=== PATIENT | male | born 1990 | race African-American/Black ===

== ENCOUNTER 2016-06-10 08:52 | Emergency (ER) | payer BC ==
[2016-06-10 08:59] VITALS: BP 125/73
[2016-06-10] MEDS ORDERED: BUPIVACAINE HCL 0.5 % INJ/PF 30 ML SDV INJ ONE (09:11)
--- NOTE | 2016-06-10 09:12 | ER Document Report ---
ED Oral Problem - General Chief Complaint: Toothache Stated Complaint: TOOTH PAIN Notes: The patient is a 26-year-old male who presents with 2 days of a left lower molar toothache and mild swelling around this. The pain is worse with cold foods. To help. He denies difficult to swallowing, tongue elevation, fevers, redness or stridor. TRAVEL OUTSIDE OF THE [place] IN LAST 30 DAYS: No - Related Data Allergies/Adverse Reactions: No Known Allergies Allergy (Verified 06/10/16 08:57) Past Medical History - General Information source: Patient - Social History Smoking Status: Current Every Day Smoker Chew tobacco use (# tins/day): No Frequency of alcohol use: None Drug Abuse: None Family History: None, Reviewed & Not Pertinent Patient has suicidal ideation: No Patient has homicidal ideation: No Past Surgical History: Reports: Hx Orthopedic Surgery - back - Immunizations Hx Diphtheria, Pertussis, Tetanus Vaccination: Yes Review of Systems - Review of Systems Notes: REVIEW OF SYSTEMS: CONSTITUTIONAL: -fevers, -chills EENT: +toothache Denies eye, ear or throat pain or symptoms. Denies nasal or sinus congestion. CARDIOVASCULAR: Denies chest pain, syncope. RESPIRATORY: Denies cough, cold, or chest congestion. Denies shortness of breath, difficulty breathing, or wheezing. GASTROINTESTINAL: Denies abdominal pain. Denies nausea, vomiting, or diarrhea. Denies constipation. GENITOURINARY: Denies difficulty urinating, painful urination, burning, frequency, or blood in urine. MUSCULOSKELETAL: Denies neck or back pain or joint pain or swelling. SKIN: Denies rash or skin lesions. HEMATOLOGIC: Denies easy bruising or bleeding. LYMPHATIC: Denies swollen, enlarged glands. NEUROLOGICAL: Denies altered mental status or loss of consciousness. Denies headache. Denies weakness or paralysis or loss of use of either side. Denies problems with gait or speech. Denies sensory or motor loss. PSYCHIATRIC: Denies anxiety or stress or depression. ALL OTHER SYSTEMS REVIEWED AND NEGATIVE. Physical Exam - Vital signs Vitals: Temp Pulse Resp BP Pulse Ox 98.1 F 68 13 125/73 97 06/10/16 08:57 06/10/16 08:57 06/10/16 08:57 06/10/16 08:57 06/10/16 08:57 - Notes Notes: PHYSICAL EXAMINATION: GENERAL: Well-appearing, well-nourished and in no acute distress. HEAD: Atraumatic, normocephalic. EYES: Pupils equal round and reactive to light, extraocular movements intact, sclera anicteric, conjunctiva are normal. ENT: Left lower molar with dora, mild ginigival swelling, no facial swelling, nares patent, oropharynx clear without exudates. Moist mucous membranes. NECK: Normal range of motion, supple without lymphadenopathy LUNGS: Breath sounds clear to auscultation bilaterally and equal. No wheezes rales or rhonchi. HEART: Regular rate and rhythm without murmurs ABDOMEN: Soft, nontender, normoactive bowel sounds. No guarding, no rebound. No masses appreciated. EXTREMITIES: Normal range of motion, no pitting or edema. No cyanosis. NEUROLOGICAL: Cranial nerves grossly intact. Normal speech, normal gait. Normal sensory, motor, and reflex exams. PSYCH: Normal mood, normal affect. SKIN: Warm, Dry, normal turgor, no rashes or lesions noted. Course - Re-evaluation Re-evalutation: No evidence of ANUG, Carson angina or facial cellulitis. Will treat with dental block, penicillin and a short course of [place] with follow-up at dentist. - Vital Signs Vital signs: Temp Pulse Resp BP Pulse Ox 98.1 F 68 13 125/73 97 06/10/16 08:57 06/10/16 08:57 06/10/16 08:57 06/10/16 08:57 06/10/16 08:57 Procedures - Additional Procedures Dental Block Time performed: 09:17 - 3 mL 0.5% bupivacaine injected into left inferior alveolar nerve. She tolerated procedure well. Discharge - Discharge Clinical Impression: Pain, dental Condition: Good Disposition: HOME, SELF-CARE Additional Instructions: TOOTHACHE: Your pain is due to dental decay. The tooth must be repaired in order for you to feel better. You will, therefore, be referred to a dentist. We do not have dentists on the staff at [facility]. Severe swelling or drainage around a tooth usually means a dental abscess. This also requires evaluation and treatment by the dentist, but antibiotics may be prescribed while awaiting dental treatment. You should be rechecked immediately if you develop major swelling of the face, increasing pain, a lump in the jaw or gums, headache, difficulty swallowing, or fever. ORAL NARCOTIC MEDICATION: You have been given a prescription for pain control. This medication is a narcotic. It's best taken with food, as nausea can result if taken on an empty stomach. Don't operate machinery or drive within six hours of taking this medication. Do not combine this medicine with alcohol, or with any medication which can cause sedation (such as cold tablets or sleeping pills) unless you get permission from the physician. Narcotics tend to cause constipation. If possible, drink plenty of fluids and eat a diet high in fiber and fruits. Please be aware that prescription narcotics also have the potential for abuse. People become addicted to these medications because of the general sense of wellbeing that they induce. This feeling along with a significant reduction in tension, anxiety, and aggression provides a stimulating seductive quality to these drugs. Once your pain is under control, we encourage you to discard your unused narcotics. PENICILLIN V K: You have been given a prescription for Penicillin VK. Your physician has determined that this is the best antibiotic for your condition. Pen VK can be taken with meals, however more of the antibiotic gets into the bloodstream if it's taken on an empty stomach. Penicillin usually has no side effects. However, allergy to penicillins is common. If you have had an allergic reaction to any drug of the penicillin family, you should never take any other penicillin. Notify your doctor at once if you develop hives, itching, swelling, faintness, or shortness of breath. FOLLOW-UP CARE: You have been referred for follow-up care to the dentists listed below. Call the dentists office for an appointment as you were instructed or within the next two days. If you experience worsening or a significant change in your symptoms, notify the physician immediately or return to the Emergency Department at any time for re-evaluation. [facility] [address] [place], [place] mornings, by appointment [facility] [address] [place] [address] [facility] [address] [facility] [address] [facility] [address] [email or web address] [facility] [address] [place] [address] Sunday- 8:00am to 5:00 pm Will see patients from other [facility]. Charges based on income and family size and accepts Medicare, Medicaid, and Insurances Will pull molars [facility] [address] Hours of Operation 8:00 am - 4:30 pm weekdays The following dental offices accept Medicaid: [facility] Dr. Gomez Dr. Jensen Dr. Mckee Dr. Andrews Usman Quinn Lutsavage, and Ja oral surgery Dr. Lomeli ([place]) Dr. Inman ([place]) [facility] Drs. Aaron ([place]) Dr. Serrano ([place]) [facility] Dr. Le ([place]) Drs. Townsend and ([place]) Medicaid Care Line Prescriptions: Hydrocodone/Acetaminophen [[place] 5-325 mg Tablet] 1 tab PO Q6H PRN #8 tablet PRN Reason: Penicillin V Potassium [Penicillin Vk 500 mg Tablet] 500 mg PO TID #21 tablet
== END 2016-06-10 09:35 | disposition home or self-care (01) ==
LOC: ER 08:52
PROC: 3E0T3BZ Introduction of Anesthetic Agent into Peripheral Nerves and Plexi, Percutaneous Approach (ICD-10-PCS; principal; 2016-06-10)
DX: K08.89 Other specified disorders of teeth and supporting structures (principal); R22.0 Localized swelling, mass and lump, head; F17.210 Nicotine dependence, cigarettes, uncomplicated
CPT/HCPCS: 99282

== ENCOUNTER 2016-10-21 21:25 | Emergency (ER) | payer BC ==
[2016-10-21 21:38] VITALS: BP 136/82
[2016-10-21] MEDS ORDERED: LIDOCAINE 1% INJ-PF (10 MG/ML) 30 ML SDV INJ ONE (22:11)
[2016-10-21] MEDS ORDERED: BUPIVACAINE HCL 0.5 % INJ/PF 30 ML SDV INJ ONE (22:12)
--- NOTE | 2016-10-21 22:13 | ER Document Report ---
ED Extremity Problem, Lower - General Chief Complaint: Ankle Injury Stated Complaint: RIGHT ANKLE INJURY Time Seen by Provider: 10/21/16 22:05 Notes: Patient is a 26-year-old male who comes emergency department for chief complaint of injury to his right foot and ankle, he states he tripped on a skateboard at the top of a steroid, he states he landed awkwardly twisting and inverting his right ankle and foot, he states he also jammed his great toe and broke the very tip, he states he has an ingrown toenail in there which has worsened with swelling. Patient denies any other injuries from the fall, denies head or neck injury. TRAVEL OUTSIDE OF THE [place] IN LAST 30 DAYS: No - Related Data Allergies/Adverse Reactions: No Known Allergies Allergy (Verified 06/10/16 08:57) Past Medical History - General Information source: Patient - Social History Smoking Status: Never Smoker Drug Abuse: None Lives with: Family Family History: None, Reviewed & Not Pertinent Patient has suicidal ideation: No Patient has homicidal ideation: No - Medical History Medical History: Negative Renal/ Medical History: Denies: Hx Peritoneal Dialysis Past Surgical History: Reports: Hx Orthopedic Surgery - back - Immunizations Hx Diphtheria, Pertussis, Tetanus Vaccination: Yes Review of Systems - Review of Systems Constitutional: No symptoms reported EENT: No symptoms reported Cardiovascular: No symptoms reported Respiratory: No symptoms reported Gastrointestinal: No symptoms reported Genitourinary: No symptoms reported Male Genitourinary: No symptoms reported Musculoskeletal: See HPI Skin: See HPI Hematologic/Lymphatic: No symptoms reported Neurological/Psychological: No symptoms reported Physical Exam - Vital signs Vitals: Temp Pulse Resp BP Pulse Ox 98 F 74 18 136/82 H 98 10/21/16 21:34 10/21/16 21:34 10/21/16 21:34 10/21/16 21:34 10/21/16 21:34 Interpretation: Normal - General General appearance: Appears well, Alert In distress: None - HEENT Head: Normocephalic, Atraumatic Eyes: Normal Pupils: PERRL - Respiratory Respiratory status: No respiratory distress Chest status: Nontender Breath sounds: Normal Chest palpation: Normal - Cardiovascular Rhythm: Regular Heart sounds: Normal auscultation Murmur: No - Abdominal Inspection: Normal Distension: No distension Bowel sounds: Normal Tenderness: Nontender Organomegaly: No organomegaly - Back Back: Normal, Nontender - Extremities General upper extremity: Normal inspection, Nontender, Normal color, Normal ROM , Normal temperature General lower extremity: Other - Right great ingrown toenail noted with mild soft tissue swelling, no bleeding, no purulent drainage. Tenderness over the dorsal aspect of the right foot over the proximal lateral aspect, no swelling, normal distal neurovascular exam, normal lower extremity exam otherwise. - Neurological Neuro grossly intact: Yes Cognition: Normal Orientation: AAOx4 [place] Coma Scale Eye Opening: Spontaneous Beto Coma Scale Verbal: Oriented Beto Coma Scale Motor: Obeys Commands Beto Coma Scale Total: 15 Speech: Normal Motor strength normal: LUE, RUE, LLE, RLE Sensory: Normal - Psychological Associated symptoms: Normal affect, Normal mood - Skin Skin Temperature: Warm Skin Moisture: Dry Skin Color: Normal Course - Re-evaluation Re-evalutation: Tender ingrown toenail removed, dressed, discussed care of the area, discussed follow-up with podiatry, discussed return precautions. Patient also placed in Valente immobilizer and given instructions for treatment of suspected ankle sprain. X-rays reviewed, no fracture or other abnormality noted. - Vital Signs Vital signs: Temp Pulse Resp BP Pulse Ox 98 F 74 18 136/82 H 98 10/21/16 21:34 10/21/16 21:34 10/21/16 21:34 10/21/16 21:34 10/21/16 21:34 Procedures - Incision and Drainage Right ingrown toenail Type: Single Anesthetic type: Other - 0.5% bupivacaine and 1% lidocaine digital block performed with excellent anesthesia mL's of anesthetic: 6 I&D procedure: Other - Surgical cleanser applied, sterile dressing applied Incision Method: Incision made with needle - Dissected skin back away from the right great toe ingrown nail with needle and with pickups. Needle spotter driver used to clamp the ingrown portion, scissor used to cut the nail free, ingrown nail pulled out using the needle spotter driver. Notes: After ingrown nail dissected and cut out, used silver nitrate stick to nail root at the ingrown area, cleaned again, dressed - Immobilization Right ankle Pre-Proc Neuro Vasc Exam: Normal Immobilizer type: Valente wrap Performed by: PCT Post-Proc Neuro Vasc Exam: Normal Alignment checked and good: Yes Discharge - Discharge Clinical Impression: Ingrown right big toenail Right ankle injury Qualifiers: Encounter type: initial encounter Qualified Code(s): S99.911A - Unspecified injury of right ankle, initial encounter Condition: Stable Disposition: HOME, SELF-CARE Additional Instructions: The ingrown toenail has been cut out, keeping the area clean, follow additional instructions below. If this returns please follow-up with podiatry referral. The x-rays of your foot and ankle do not show any fractures or dislocation, elevate your foot, ice 3-4 times a day for 10-15 minutes, take the naproxen as directed, use the crutches for the first 2-3 days. After pain and swelling resolve resume normal activity. Return to the emergency department for any concerning symptoms. Ingrown Nail You have an ingrown nail. An ingrown nail develops when the tissues near the nail are pushed up over the nail. Irritation develops and infection follows. An ingrown nail can result from poorly fitting shoes, improper cutting of the nail, or minor injuries. Once the tissues at the edge of the nail swell, the problem can become chronic. Emergency treatment is usually removal of the portion of the nail that has become ingrown. This is followed by hot soaks three to four times a day. Antibiotics may be necessary if infection is present. After the toe heals, make certain there is no pressure on the area, either from shoes or another toe. Trim the toenails straight across, not curved back into the corners. If ingrown nails recur, an operation to remove excess tissue near the nail, or narrowing of the nail, may be necessary. Call the doctor or return if swelling increases, or red streaks, swelling, or swollen glands are found. Prescriptions: Naproxen 500 mg PO BID #20 tablet Forms: Return to Work, Elevated Blood Pressure Referrals: DA CARDENAS FNP-C [Primary Care Provider] - Follow up as needed WALLACE OLVERA DPM [ACTIVE STAFF] - Follow up as needed
== END 2016-10-22 02:06 | disposition home or self-care (01) ==
LOC: ER 21:25
PROC: 0HBRXZZ Excision of Toe Nail, External Approach (ICD-10-PCS; principal; 2016-10-21)
DX: S99.919A Unspecified injury of unspecified ankle, initial encounter (principal); W01.0XXA Fall on same level from slipping, tripping and stumbling without subsequent striking against object, initial encounter; L60.0 Ingrowing nail
CPT/HCPCS: 99283

== ENCOUNTER 2017-03-31 01:46 | Emergency (ER) | payer SELFPAY ==
[2017-03-31 02:29] LABS: ABSOLUTE EOSINOPHILS # (AUTO) 0.2 10^3/uL (0.0-0.6); ABSOLUTE LYMPHOCYTES (AUTO) 1.3 10^3/uL (0.5-4.7); ABSOLUTE MONOCYTES (AUTO) 0.7 10^3/uL (0.1-1.4); ABSOLUTE NEUT (AUTO) 4.9 10^3/uL (1.7-8.2); BASOPHILS % (AUTO) 0.5 % (0-2); EOSINOPHILS % (AUTO) 2.4 % (0-6); HEMATOCRIT 39.4 % (37.9-51.0); HEMOGLOBIN 13.5 g/dL (13.5-17.0); HGB HCT DIFFERENCE 1.1; LYMPHOCYTES % (AUTO) 18.7 % (13-45); MEAN CORPUSCULAR HEMOGLOBIN 29.8 pg (27.0-33.4); MEAN CORPUSCULAR HGB CONC 34.2 g/dL (32.0-36.0); MEAN CORPUSCULAR VOLUME 87 fl (80-97); RED BLOOD COUNT 4.53 10^6/uL (4.35-5.55); RED CELL DISTRIBUTION WIDTH 12.8 % (11.5-14.0); SEGMENTED NEUTROPHILS % (AUTO) 68.4 % (42-78); WHITE BLOOD COUNT 7.1 10^3/uL (4.0-10.5)
[2017-03-31 02:32] LABS: APPEARANCE,URINE CLEAR; BILIRUBIN,URINE SMALL (NEGATIVE); GLUCOSE, URINE NEGATIVE (NEGATIVE); KETONES,URINE NEGATIVE (NEGATIVE); LEUKOCYTE ESTERASE,URINE TRACE (NEGATIVE); NITRITE,URINE NEGATIVE (NEGATIVE); PROTEIN,URINE NEGATIVE (NEGATIVE); URINE SPECIFIC GRAVITY 1.032
[2017-03-31 02:41] LABS: ALANINE AMINOTRANSFERASE 32 U/L (21-72); ALBUMIN 4.2 g/dL (3.5-5.0); ALKALINE PHOSPHATASE 60 U/L (38-126); ANION GAP 11 (5-19); ASPARTATE AMINO TRANSFERASE 16 U/L (17-59); BILIRUBIN,DIRECT 0.3 mg/dL (0.0-0.4); BILIRUBIN,TOTAL 0.4 mg/dL (0.2-1.3); BLOOD UREA NITROGEN 14 mg/dL (7-20); CALCIUM 9.4 mg/dL (8.4-10.2); CARBON DIOXIDE 27 mmol/L (22-30); CHLORIDE 105 mmol/L (98-107); CREATININE RESULT 1.05 mg/dL (0.52-1.25); GLUCOSE 98 mg/dL (75-110); POTASSIUM 4.1 mmol/L (3.6-5.0); SODIUM 143.4 mmol/L (137-145); TOTAL PROTEIN 7.5 g/dL (6.3-8.2)
--- NOTE | 2017-03-31 02:50 | ER Document Report ---
ED General - General Chief Complaint: Cold Symptoms Stated Complaint: HEADACHE Time Seen by Provider: 03/31/17 02:32 Information source: Patient Notes: with complaint of multiple symptomatologies. 1 he is concerned that he has congestion runny nose and a headache that has been going on for approximately a week and has increased tonight. He has had a greenish yellow discharge from his nose as well as a greenish yellow coughing up sputum. I also states he has wheezed off and on for the past week. 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 Also states he has been working so many hours he is only getting 4 hours of sleep at night and he is stated that he is vomited up what he ate today prior to going to see the nurse at the factory. He states he stopped smoking about 1 month ago. Denies any other medical problems. TRAVEL OUTSIDE OF THE [place] IN LAST 30 DAYS: No - HPI Patient complains to provider of: Headache congestion runny nose vomiting Onset: Last week Onset/Duration: Persistent Quality of pain: Achy Severity: Mild Pain Level: 2 Associated symptoms: Body/muscle aches, Productive cough, Earache, Nausea, Vomiting, Rhinnorhea, Sinus pain/drainage Exacerbated by: Denies Relieved by: Denies Similar symptoms previously: No Recently seen / treated by doctor: No - Related Data Allergies/Adverse Reactions: No Known Allergies Allergy (Verified 03/31/17 02:03) Past Medical History - General Information source: Patient - Social History Smoking Status: Former Smoker Chew tobacco use (# tins/day): No Frequency of alcohol use: Rare Drug Abuse: None Family History: None, Reviewed & Not Pertinent Patient has suicidal ideation: No Patient has homicidal ideation: No Renal/ Medical History: Denies: Hx Peritoneal Dialysis Psychiatric Medical History: Reports: Hx Depression Past Surgical History: Reports: Hx Orthopedic Surgery - back; feet - Immunizations Hx Diphtheria, Pertussis, Tetanus Vaccination: No Review of Systems - Review of Systems Constitutional: No symptoms reported EENT: Ear pain, Nose congestion, Nose discharge, Sinus pressure Cardiovascular: No symptoms reported Respiratory: No symptoms reported, Cough, Wheezing Gastrointestinal: No symptoms reported, Vomiting Genitourinary: No symptoms reported Male Genitourinary: No symptoms reported Musculoskeletal: No symptoms reported Skin: No symptoms reported Hematologic/Lymphatic: No symptoms reported Neurological/Psychological: No symptoms reported -: Yes All other systems reviewed and negative Physical Exam - Vital signs Vitals: Temp Pulse Resp BP Pulse Ox 98.2 F 74 14 117/65 96 03/31/17 02:04 03/31/17 02:04 03/31/17 02:04 03/31/17 02:04 03/31/17 02:04 - General General appearance: Appears well In distress: Mild - HEENT Head: Normocephalic, Atraumatic Eyes: Normal Conjunctiva: Normal External canal: Normal Tympanic membrane: Bulging, Injected Sinus: Abnormal, Frontal, Tenderness Nasal: Purulent discharge Mouth/Lips: Normal Mucous membranes: Normal Neck: Normal - Respiratory Respiratory status: No respiratory distress Chest status: Nontender Breath sounds: Normal, Productive cough, Wheezing Chest palpation: Normal - Cardiovascular Heart sounds: Normal auscultation Murmur: No - Abdominal Inspection: Normal Distension: No distension Bowel sounds: Normal Tenderness: Nontender Organomegaly: No organomegaly - Neurological Neuro grossly intact: Yes Cognition: Normal Orientation: AAOx4 [place] Coma Scale Eye Opening: Spontaneous Beto Coma Scale Verbal: Oriented Beto Coma Scale Motor: Obeys Commands Beto Coma Scale Total: 15 Speech: Normal - Skin Skin Temperature: Warm Skin Moisture: Dry Skin Color: Normal, Marks Course - Re-evaluation Re-evalutation: 03/31/17 02:53 Patient's time spent in the emergency room shows he is improved mildly with no complaint of nausea or vomiting while here. - Vital Signs Vital signs: Temp Pulse Resp BP Pulse Ox 98.2 F 74 14 117/65 96 03/31/17 02:04 03/31/17 02:04 03/31/17 02:04 03/31/17 02:04 03/31/17 02:04 - Laboratory Result Diagrams: 03/31/17 02:17 03/31/17 02:17 Laboratory results interpreted by me: 03/31/17 03/31/17 02:17 02:17 AST 16 L Urine Bilirubin SMALL H Urine Urobilinogen 4.0 H Ur Leukocyte Esterase TRACE H Urine Ascorbic Acid 40 H Discharge - Discharge Clinical Impression: Bronchitis Upper respiratory infection Qualifiers: URI type: unspecified viral URI Qualified Code(s): J06.9 - Acute upper respiratory infection, unspecified Condition: Stable Disposition: HOME, SELF-CARE Instructions: Bronchitis With Bronchospasm (Wheezing) ([facility]), Upper Respiratory Illness ([facility]) Additional Instructions: Home today and rest medications prescribed. Use nasal saline 3 4 times a day to keep nose moist and secretions thin. Return here for any concerns or problems. Tylenol alternating with Motrin throughout the day for aches and pains. Avoid milk and dairy for 48 hours. Prescriptions: Amox Tr/Potassium Clavulanate [Augmentin 875-125 mg Tablet] 1 tab PO BID #20 tablet Prednisone [Sterapred Ds] 10 mg PO DAILY #1 tab.ds.pk Pseudoephedrine HCl [Sudafed 12-Hour] 120 mg PO BID #20 tablet.er Forms: Elevated Blood Pressure, Parent Work Note
[2017-03-31 04:52] VITALS: BP 128/62
== END 2017-03-31 03:50 | disposition home or self-care (01) ==
LOC: ER 01:46
DX: J40 Bronchitis, not specified as acute or chronic (principal); J06.9 Acute upper respiratory infection, unspecified; R51 Headache; R09.89 Other specified symptoms and signs involving the circulatory and respiratory systems; R06.2 Wheezing; R09.81 Nasal congestion; R11.2 Nausea with vomiting, unspecified; H92.09 Otalgia, unspecified ear; M79.1 Myalgia; Z87.891 Personal history of nicotine dependence
CPT/HCPCS: 36415; 80053; 81001; 83690; 85025; 99283

== ENCOUNTER 2018-03-08 14:44 | Emergency (ER) | payer SELFPAY ==
[2018-03-08 14:58] VITALS: BP 122/65
[2018-03-08] MEDS ORDERED: LORATADINE 10 MG TABLET PO ONE (15:14)
[2018-03-08] MEDS ORDERED: IBUPROFEN 800 MG TABLET PO ONE (15:14)
[2018-03-08] MEDS ORDERED: PSEUDOEPHEDRINE HCL 30 MG TABLET PO ONE (15:14)
[2018-03-08] MEDS ORDERED: GUAIFENESIN 600 MG TABLET.SA PO ONE (15:14)
--- NOTE | 2018-03-08 15:23 | ER Document Report ---
ED ENT - General Chief Complaint: Sinus Congestion Stated Complaint: SINUS PRESSURE,HEADACHE,DIZZY Time Seen by Provider: 03/08/18 15:14 Mode of Arrival: Ambulatory Information source: Patient Notes: 27-year-old male presented to ED for nasal congestion dizziness for 2 days. He states he has a headache from the nasal congestion. Patient is alert and oriented respirations regular and unlabored speaking in full sentences walking with a even steady gait. TRAVEL OUTSIDE OF THE [place] IN LAST 30 DAYS: No - HPI Patient complains to provider of: Other - Sinus pain and congestion Onset: Other Onset/Duration: Gradual - 2 days Quality of pain: Achy Severity: Mild Context: Recent Illness Location of pain: Sinus Associated symptoms: Headache, Runny nose, Sinus pain, Sinus drainage Similar symptoms previously: Yes Recently seen / treated by doctor: No - Related Data Allergies/Adverse Reactions: No Known Allergies Allergy (Verified 03/08/18 14:47) Past Medical History - General Information source: Patient - Social History Smoking Status: Former Smoker Cigarette use (# per day): No Chew tobacco use (# tins/day): No Smoking Education Provided: No Frequency of alcohol use: None Drug Abuse: None Lives with: Family Family History: None, Reviewed & Not Pertinent Patient has suicidal ideation: No Patient has homicidal ideation: No - Past Medical History Cardiac Medical History: Reports: None Pulmonary Medical History: Reports: None EENT Medical History: Reports: None Neurological Medical History: Reports: None Endocrine Medical History: Reports: None Renal/ Medical History: Reports: None Malignancy Medical History: Reports None GI Medical History: Reports: None Musculoskeletal Medical History: Reports Hx Musculoskeletal Deformity, Reports Hx Musculoskeletal Trauma Skin Medical History: Reports None Psychiatric Medical History: Reports: Hx Depression Traumatic Medical History: Reports: None Infectious Medical History: Reports: None Past Surgical History: Reports: Hx Orthopedic Surgery - back; feet - Immunizations Hx Diphtheria, Pertussis, Tetanus Vaccination: No Review of Systems - Review of Systems Constitutional: Recent illness EENT: Nose congestion, Nose discharge, Sinus pressure, Sinus discharge Cardiovascular: No symptoms reported Respiratory: Cough Gastrointestinal: No symptoms reported Genitourinary: No symptoms reported Male Genitourinary: No symptoms reported Musculoskeletal: No symptoms reported Skin: No symptoms reported Hematologic/Lymphatic: No symptoms reported Neurological/Psychological: No symptoms reported -: Yes All other systems reviewed and negative Physical Exam - Vital signs Vitals: Temp Pulse Resp BP Pulse Ox 97.9 F 82 16 122/65 97 03/08/18 14:55 03/08/18 14:55 03/08/18 14:55 03/08/18 14:55 03/08/18 14:55 Interpretation: Normal - General General appearance: Appears well, Alert - HEENT Head: Normocephalic, Atraumatic Eyes: Normal Pupils: PERRL Ears: Normal External canal: Normal Tympanic membrane: Normal Sinus: Normal Nasal: Purulent discharge, Swelling Mouth/Lips: Normal Mucous membranes: Normal Pharynx: Post nasal drainage Neck: Normal - Respiratory Respiratory status: No respiratory distress Chest status: Nontender Breath sounds: Normal Chest palpation: Normal - Cardiovascular Rhythm: Regular Heart sounds: Normal auscultation Murmur: No - Abdominal Inspection: Normal Distension: No distension Bowel sounds: Normal Tenderness: Nontender Organomegaly: No organomegaly - Back Back: Normal, Nontender - Extremities General upper extremity: Normal inspection, Nontender, Normal color, Normal ROM , Normal temperature General lower extremity: Normal inspection, Nontender, Normal color, Normal ROM , Normal temperature, Normal weight bearing. 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 Babinski reflex: Normal (flexor plantar) Sensory: Normal - Psychological Associated symptoms: Normal affect, Normal mood - Skin Skin Temperature: Warm Skin Moisture: Dry Skin Color: Normal Course - Vital Signs Vital signs: Temp Pulse Resp BP Pulse Ox 97.9 F 82 16 122/65 97 03/08/18 14:55 03/08/18 14:55 03/08/18 14:55 03/08/18 14:55 03/08/18 14:55 Discharge - Discharge Clinical Impression: URI (upper respiratory infection) Qualifiers: URI type: unspecified URI Qualified Code(s): J06.9 - Acute upper respiratory infection, unspecified Condition: Stable Disposition: HOME, SELF-CARE Additional Instructions: UPPER RESPIRATORY ILLNESS: You have a viral infection of the respiratory passages -- a "cold." This common infection causes nasal congestion, drainage, and often sore throat and cough. It is highly contagious. The disease usually lasts about 10 to 14 days. There is no "cure" for the viral infection -- it must run its course. If there is a complication, such as bacterial infection in the nose, sinuses, middle ear, or bronchial tubes, antibiotics may be required. The antibiotics won't affect the virus. Drink plenty of fluids. A humidifier may help. An expectorant medication or decongestant may make you more comfortable. Use acetaminophen or ibuprofen for fever or aches. See the doctor if fever persists over two days, if there is any significant worsening of your symptoms, or if you simply fail to improve as expected. DECONGESTANT MEDICATION: A decongestant medicine has been suggested. Often this medicine is combined in the same tablet with an antihistamine or expectorant. This type of medicine is helpful in treating a bad cold or sinus condition, as well as in treatment of the nasal congestion of hay fever. It is not of much benefit for lung infections. Decongestant medicines are related to stimulants. They can cause an increase in blood pressure and heart rate. Persons with heart disease and high blood pressure should not take decongestants without discussing this with the physician. If you develop palpitations, chest pain, headache, or tremors, stop the medicine and consult your physician. COUGH-SUPPRESSANT & EXPECTORANT MEDICATION: You are to use a cough medication as needed for relief of symptoms. This medicine is a combination of an expectorant (to make the mucous thinner and more easily "coughed up") and a cough suppressant (to reduce the frequency of coughing). The cough-suppressant medicine is related to narcotics. You may experience mild nausea and sleepiness. Some patients who are very sensitive to narcotics may have stomach pain from this medicine. Taking the medicine with food reduces these side effects. Do not drive or work with machinery until you know how this medicine affects you. The expectorant should have no side effects. Iodine-containing expectorants (such as organidin) should not be taken by persons with active thyroid disease unless approved by your doctor. Call the doctor if you develop shortness of breath, hives, rash, itching, lightheadedness, or severe nausea and vomiting. Acetaminophen Acetaminophen may be taken for pain relief or fever control. It's much safer than aspirin, offering a wider range of "safe" dosages. It is safe during . Some brand names are Tylenol, Panadol, Datril, Anacin 3, Tempra, and Liquiprin. Acetaminophen can be repeated every four hours. The following are maximum recommended dosages: WEIGHT Dose Drops Elixir Chewable( 80mg) (LBS.) drprs=droppers tsp=teaspoon 6 40 mg .4 ml (1/2) 6-11 80 mg .8 ml (full) 1/2 tsp 1 tab 12-16 120 mg 1 1/2 drprs 3/4 tsp 1 1/2 tabs 17-23 160 mg 2 drprs 1 tsp 2 tabs 24-30 240 mg 3 drprs 1 1/2 tsp 3 tabs 30-35 320 mg 2 tsp 4 tabs 36-41 360 mg 2 1/4 tsp 4 1 /2 tabs 42-47 400 mg 2 1/2 tsp 5 tabs 48-53 480 mg 3 tsp 6 tabs 54-59 520 mg 3 1/4 tsp 6 1 /2 tabs 60-64 560 mg 3 1/2 tsp 7 tabs 65-70 600 mg 3 3/4 tsp 7 1 /2 tabs 71-76 640 mg 4 tsp 8 tabs 77-82 720 mg 4 1/2 tsp 9 tabs 83-88 800 mg 5 tsp 10 tabs >89 pounds or adults 650 mg to 900 mg Acetaminophen can be repeated every four hours. Maximum daily dose not to exceed 4000 mg. These maximum recommended dosages are slightly higher than the dosages written on the product container, but these dosages are very safe and well below the toxic dosage for acetaminophen. Ibuprofen Ibuprofen is an excellent, safe drug for pain control. In addition, it has potent antiinflammatory effects which are beneficial, especially in the treatment of injuries, arthritis, or tendonitis. It's best to take ibuprofen with food. Persons with ulcer disease or allergy to aspirin should notify their physician of this before taking ibuprofen. Take the medication exactly as prescribed. Don't take additional doses unless instructed to do so by your doctor. If you develop wheezing, shortness of breath, hives, faintness, stomach pain, vomiting, or dark black stools, return for re-evaluation at once. You were given Claritin 10 mg, Sudafed 30 mg, Mucinex 600 mg, and ibuprofen in the emergency room. These are all over the counter medications that you can buy at the drugstore. The Sudafed you will have to ask the pharmacist for. Other medications that could help your Flonase which is [id number]. Follow the instructions on the box. The other thing is salt and soda solution is to decrease the mucus in your throat and decreased sore throats. Salt and soda solution 1 quart of water 1 tablespoon of salt 1 teaspoon of baking soda Mixed 3 ingredients together and boil for 1 minute Placed in a covered quart jar Use 1/2 ounce of cold solution to gargle 3 times a day FOLLOW-UP CARE: If you have been referred to a physician for follow-up care, call the physician s office for an appointment as you were instructed or within the next two days. If you experience worsening or a significant change in your symptoms, notify the physician immediately or return to the Emergency Department at any time for re-evaluation. Forms: Return to Work Referrals: DA CARDENAS, PASTORAL ASSISTANT-C [COMMUNITY BASED STAFF] - Follow up as needed
== END 2018-03-08 15:27 | disposition home or self-care (01) ==
LOC: ER 14:44
DX: J06.9 Acute upper respiratory infection, unspecified (principal); R09.81 Nasal congestion; R42 Dizziness and giddiness; R51 Headache; J34.89 Other specified disorders of nose and nasal sinuses; R05 Cough; R09.82 Postnasal drip; Z87.891 Personal history of nicotine dependence
CPT/HCPCS: 99283

== ENCOUNTER 2018-04-30 20:46 | Emergency (ER) | payer SELFPAY ==
--- NOTE | 2018-04-30 22:57 | ER Document Report ---
ED GI/ - General Chief Complaint: Abdominal Pain Stated Complaint: ABDOMINAL PAIN Time Seen by Provider: 04/30/18 22:51 Mode of Arrival: Ambulatory Notes: 47-year-old male presented to ED for complaint of abdominal pain generalized off and on today. He states he was sent home from work because he was having some stomach cramping and was nauseated. He states he has not had any diarrhea since 7 PM. He states he had 2 stools today that were liquid. He denies any vomiting all day. He is alert oriented respirations regular and unlabored speaking in full sentences. Abdomen soft nontender with active bowel sounds. TRAVEL OUTSIDE OF THE [place] IN LAST 30 DAYS: No - HPI Patient complains to provider of: Abdominal pain, Diarrhea - 2 liquid stools, Other - Nausea Onset: This morning Timing/Duration: Gone Quality of pain: Cramping Severity at maximum: Moderate Severity in ED: None Pain Level: Denies Location: LUQ, LLQ, RUQ, RLQ Associated symptoms: Diarrhea, Nausea - 2 stools. denies: Vomiting Exacerbated by: Denies Relieved by: Denies Similar symptoms previously: Yes Recently seen / treated by doctor: No - Related Data Allergies/Adverse Reactions: No Known Allergies Allergy (Verified 03/08/18 14:47) Past Medical History - General Information source: Patient - Social History Smoking Status: Current Every Day Smoker Cigarette use (# per day): Yes - 1-2 cigarettes a day Smoking Education Provided: Yes - 4 minutes Frequency of alcohol use: Occasional Drug Abuse: None Occupation: [employer] Lives with: Family Family History: None, Reviewed & Not Pertinent Patient has suicidal ideation: No Patient has homicidal ideation: No - Past Medical History Cardiac Medical History: Reports: None Pulmonary Medical History: Reports: None EENT Medical History: Reports: None Neurological Medical History: Reports: None Endocrine Medical History: Reports: None Renal/ Medical History: Reports: None Malignancy Medical History: Reports None GI Medical History: Reports: None Musculoskeletal Medical History: Reports Hx Musculoskeletal Deformity, Reports Hx Musculoskeletal Trauma Skin Medical History: Reports None Psychiatric Medical History: Reports: Hx Depression Traumatic Medical History: Reports: Hx Fractures - Leg Infectious Medical History: Reports: None Past Surgical History: Reports: Hx Orthopedic Surgery - back; feet, Other - Ingrown pain nail was removed - Immunizations Hx Diphtheria, Pertussis, Tetanus Vaccination: No Review of Systems - Review of Systems Notes: REVIEW OF SYSTEMS: CONSTITUTIONAL : Denies fever, chills, or sweats. Denies recent illness. EENT: Denies eye, ear, throat, or mouth pain or symptoms. Denies nasal or sinus congestion or discharge. Denies throat, tongue, or mouth swelling or difficulty swallowing. CARDIOVASCULAR: Denies chest pain. Denies palpitations or racing or irregular heart beat. Denies ankle edema. RESPIRATORY: Denies cough, cold, or chest congestion. Denies shortness of breath, difficulty breathing, or wheezing. GASTROINTESTINAL: Abdominal cramping off and on that is all relieved. He states he had nausea earlier with no vomiting and he had 2 liquid stools last one was at 7 PM. He states he was told he had to have a work note in order to return to work. Denies blood in vomitus, stools, or per rectum. Denies black, tarry stools. Denies constipation. GENITOURINARY: Denies difficulty urinating, painful urination, burning, frequency, blood in urine, or discharge. MUSCULOSKELETAL: Denies back or neck pain or stiffness. Denies joint pain or swelling. SKIN: Denies rash, lesions or sores. HEMATOLOGIC : Denies easy bruising or bleeding. LYMPHATIC: Denies swollen, enlarged glands. NEUROLOGICAL: Denies confusion or altered mental status. Denies passing out or loss of consciousness. Denies dizziness or lightheadedness. Denies headache. Denies weakness or paralysis or loss of use of either side. Denies problems with gait or speech. Denies sensory loss, numbness, or tingling. Denies seizures. PSYCHIATRIC: Denies anxiety or stress. Denies depression, suicidal ideation, or homicidal ideation. ALL OTHER SYSTEMS REVIEWED AND NEGATIVE. Dictation was performed using [employer] recognition software PHYSICAL EXAMINATION: GENERAL: Well-appearing, well-nourished and in no acute distress. HEAD: Atraumatic, normocephalic. EYES: Pupils equal round and reactive to light, extraocular movements intact, sclera anicteric, conjunctiva are normal. ENT: Nares patent, oropharynx clear without exudates. Moist mucous membranes. NECK: Normal range of motion, supple without lymphadenopathy LUNGS: Breath sounds clear to auscultation bilaterally and equal. No wheezes rales or rhonchi. HEART: Regular rate and rhythm without murmurs ABDOMEN: Soft, nontender, nondistended abdomen. No guarding, no rebound. No masses appreciated. Musculoskeletal: Normal range of motion, no pitting or edema. No cyanosis. NEUROLOGICAL: Cranial nerves grossly intact. Normal speech, normal gait. Normal sensory, motor exams PSYCH: Normal mood, normal affect. SKIN: Warm, Dry, normal turgor, no rashes or lesions noted. Physical Exam - Vital signs Vitals: Temp Pulse Resp BP Pulse Ox 97.4 F 70 16 111/66 98 04/30/18 20:50 04/30/18 20:50 04/30/18 20:50 04/30/18 20:50 04/30/18 20:50 Course - Vital Signs Vital signs: Temp Pulse Resp BP Pulse Ox 97.4 F 58 L 18 111/68 97 04/30/18 23:02 04/30/18 23:02 04/30/18 23:02 04/30/18 23:02 04/30/18 23:02 Discharge - Discharge Clinical Impression: Viral syndrome, Abdominal cramping Condition: Stable Disposition: HOME, SELF-CARE Instructions: Family Physicians / Practices Additional Instructions: Nausea or Vomiting, Nonspecific Vomiting (or nausea without vomiting) can be caused by many different problems. Of course, it can mean that something's wrong with the stomach, such as "stomach flu," ulcers, or inflammation. But it can also be a symptom of a problem that has nothing to do with the stomach or intestines. Vomiting is common with severe headaches, earaches, and tonsillitis. We see it with pneumonia or heart attacks. Drugs can cause nausea. Many abdominal problems cause vomiting; for example, gallstones, kidney stones, pancreatitis, and intestinal obstruction (blocked bowels). In most cases, curing the vomiting depends on fixing the problem that caused it. For temporary relief, we may use an anti-nausea medicine. For home use, we can prescribe suppositories, chewable pills, pills that dissolve in the mouth, or liquid anti-nausea drugs. If the vomiting seems to be caused by a problem in the stomach, acid-suppressing drugs may be prescribed as well. It's important to avoid dehydration. Sip clear liquids. Take increasing amounts of fluid over the first 24 hours. Then start small amounts of bland foods (such as dry toast, applesauce, mashed potato). Avoid aspirin, tobacco, and alcohol. Gradually resume your usual diet. If the vomiting worsens, if the problem that's making you vomit worsens, or if there's evidence of bleeding in the stomach (such as black, tarry stool, bloody or black vomit, or lightheadedness), you should return immediately. Call your doctor if you aren't improved in 24 to 36 hours. You state you had nausea earlier today with abdominal pain but this is all been relieved. She states she has not had any diarrhea stools since 7 PM. You deny any fevers. We will send you home [facility] and a work note for you to go back to work tomorrow. If you develop any new symptoms please return to the ED for further evaluation. You stated you do not want blood work and urine at this time. DIARRHEA, NON-SPECIFIC: Diarrhea means frequent, watery stools. There are many causes. Any problem that keeps the intestinal tract from absorbing water from the stool can lead to diarrhea. A sudden new diarrhea problem is usually caused by a virus, food sensitivity, toxic bacteria, or drugs. In this case, we expect the problem to go away soon. Testing is done only if you seem seriously ill from the diarrhea. If you have chronic diarrhea, or diarrhea that keeps coming back, we need to find out why. Chronic diarrhea can be due to inflammation of the bowels such as Crohn's disease or ulcerative colitis, food sensitivity such as intolerance to lactose or wheat protein, irritable bowel syndrome, and other problems. If your diarrhea is a significant problem but it's not clear why you have it, we' ll refer you to a specialist for further testing. During an episode of diarrhea, drink small amounts (two to six ounces) of clear liquids (soft drinks, sport drinks, herb teas, broth, etc). Take fluids frequently to prevent dehydration. It's usually not a problem to take mild anti- diarrhea medication such as Kaopectate or Pepto-Bismol. As the diarrhea eases, advance to small amounts of bland food (mashed potato, toast) for 24 hours. Call the physician if blood appears in your vomit or stool, if vomiting lasts longer than 24 hours, if the abdominal pain worsens or becomes localized to one area, if you develop high fever, or if you become lightheaded and weak. VIRAL SYNDROME: The physician has diagnosed a viral infection. Viruses not only cause "colds," but can cause many different symptoms including generalized aching, fever, headache, cough, diarrhea, nausea, vomiting, and fatigue. The treatment, for the most part, is simply relief of symptoms. This means that antibiotics are usually not given. Rest, fluids, pain medications and, occasionally, medication for the specific symptoms that are most bothersome will be prescribed. Use good handwashing to avoid passing the virus to others. Shared toys should be cleaned with disinfectant. Clean the toilets, sinks, and counter surfaces in bathrooms. Launder clothing in hot water. Contact the physician if you develop any new or unusual symptoms such as severe headache, stiff neck, high fever, chest pain, productive cough, or shortness of breath. You should be rechecked if you don't see marked improvement within seven to 10 days. ANTINAUSEA MEDICATION: You have been given a medication to suppress nausea and vomiting. This type of medication can be given as a shot, pill, or suppository. It will usually last for many hours. Pills and shots usually last six to eight hours. For the typical illness, only one or two doses of the medication may be necessary. Mild lightheadedness may occur. This type of medicine can cause drowsiness. Do not drive or operate dangerous machinery while under its influence. Do not mix with alcohol. See your doctor at once if you have muscle spasms or tightness, or uncontrollable motions (particularly of the neck, mouth, or jaw). Persistent vomiting or severe lightheadedness should also be evaluated by the physician. FOLLOW-UP CARE: If you have been referred to a physician for follow-up care, call the physician s office for an appointment as you were instructed or within the next two days. If you experience worsening or a significant change in your symptoms, notify the physician immediately or return to the Emergency Department at any time for re-evaluation. Prescriptions: Ondansetron [Zofran Odt 4 mg Tablet] 1 tab PO Q6H #15 tab.rapdis Forms: Return to Work
[2018-04-30 23:04] VITALS: BP 111/68
== END 2018-04-30 23:05 | disposition home or self-care (01) ==
LOC: ER 20:46
DX: R10.84 Generalized abdominal pain (principal); B34.9 Viral infection, unspecified; R19.7 Diarrhea, unspecified; R11.0 Nausea; F17.210 Nicotine dependence, cigarettes, uncomplicated
CPT/HCPCS: 99283; 99406

== ENCOUNTER 2018-10-22 02:41 | Emergency (ER) | payer SELFPAY ==
[2018-10-22 02:48] VITALS: BP 126/70
[2018-10-22] MEDS ORDERED: POLYMYXIN B SULFATE/TMP OPH SOLN (10 ML/ER DISP) OD PRN (04:06)
--- NOTE | 2018-10-22 04:10 | ER Document Report ---
HPI - HPI Time Seen by Provider: 10/22/18 03:58 Pain Level: 2 Context: Patient is a 28-year-old male that comes to the emergency department for chief complaint of redness, irritation, and watery drainage from the right eye. This is been developing over the past 2 days. He denies visual loss, he does not wear contacts or glasses, he denies injury. He denies fever/chills. He denies any other complaints. Past Medical History - General Information source: Patient - Social History Smoking Status: Unknown if Ever Smoked Drug Abuse: None Lives with: Family Family History: None, Reviewed & Not Pertinent Renal/ Medical History: Denies: Hx Peritoneal Dialysis Musculoskeletal Medical History: Reports Hx Musculoskeletal Deformity, Reports Hx Musculoskeletal Trauma Psychiatric Medical History: Reports: Hx Depression Traumatic Medical History: Reports: Hx Fractures - Leg Past Surgical History: Reports: Hx Orthopedic Surgery - back; feet, Other - Ingrown pain nail was removed - Immunizations Hx Diphtheria, Pertussis, Tetanus Vaccination: No Vertical Provider Document - CONSTITUTIONAL General Appearance: WD/WN, No Apparent Distress - INFECTION CONTROL TRAVEL OUTSIDE OF THE [place] IN LAST 30 DAYS: No - HEENT HEENT: Atraumatic, Conjuctival Injection - Right-sided conjunctival injection with some tears but no noted purulent drainage. Normal pupillary response, normal EOMs, normal visual acuity. No fluorescein stain uptake noted, negative Jarvis sign, no foreign bodies noted. Eyelids unremarkable., Normocephalic. negative: PERRLA, Pharyngeal Exudate, Pharyngeal Tenderness, Pharyngeal Erythema, Tympanic Membrane Red, Tympanic Membrane Bulging - NECK Neck: Normal Inspection - RESPIRATORY Respiratory: Breath Sounds Normal, No Respiratory Distress - CARDIOVASCULAR Cardiovascular: Regular Rate, Regular Rhythm - GI/ABDOMEN Gastrointestinal: Abdomen Soft, Abdomen Non-Tender - BACK Back: Normal Inspection - MUSCULOSKELETAL/EXTREMETIES Musculoskeletal/Extremeties: MAEW, FROM, Non-Tender - NEURO Level of Consciousness: Awake, Alert, Appropriate Motor/Sensory: No Motor Deficit, No Sensory Deficit - DERM Integumentary: Warm, Dry, No Rash Course - Re-evaluation Re-evalutation: Presentation consistent with conjunctivitis. Fluorescein stain performed and Zapien lamp examination performed without any concerning findings. No loss of visual acuity or signs of distress. No foreign body. Patient will be treated with to go drops of Polytrim, discussed treatment, expectations, precautions, and return precautions. Patient stated understanding and agreement. - Vital Signs Vital signs: Temp Pulse Resp BP Pulse Ox 98.3 F 81 20 126/70 H 97 10/22/18 02:46 10/22/18 02:46 10/22/18 02:46 10/22/18 02:46 10/22/18 02:46 Discharge - Discharge Clinical Impression: Conjunctivitis Qualifiers: Conjunctivitis type: acute Acute conjunctivitis type: unspecified Laterality: right Qualified Code(s): H10.31 - Unspecified acute conjunctivitis, right eye Condition: Stable Disposition: HOME, SELF-CARE Additional Instructions: Your evaluation shows conjunctivitis. Take antibiotic eyedrops as prescribed (1 drop 4 times daily for 7 days). Sometimes this is viral and takes time to resolve. Follow-up with primary care for additional evaluation and management. Return if you worsen including loss of vision, swelling of the eye/eyelid, developing pain, fever, or any other concerning or worsening symptoms. Forms: Return to Work
== END 2018-10-22 04:25 | disposition home or self-care (01) ==
LOC: ER 02:41
DX: H10.31 Unspecified acute conjunctivitis, right eye (principal)
CPT/HCPCS: 99282; J3490

== ENCOUNTER 2018-10-28 11:52 | Emergency (ER) | payer SELFPAY ==
[2018-10-28] MEDS ORDERED: TETRACAINE HCL 0.5% OPH SOLN 4 ML ONE (14:08)
[2018-10-28] MEDS ORDERED: TETRACAINE HCL 0.5% OPH SOLN 4 ML OD ONE (14:11)
--- NOTE | 2018-10-28 14:13 | ER Document Report ---
Doctor's Note Notes: 10/28/18 14:04 I was asked to see this patient by the physician laundry assistant. 28-year-old male who about 1 week ago started to develop runny nose, congestion, with some irritation and drainage that is yellowish in color from the right eye. It is subsequently spread to the left eye. He was placed on Polytrim 5 days ago with no worsening or improvement. He denies any pain with eye movement. He denies any blurry vision other than the tingling in his eyes. He denies any foreign bodies into the eyes. He states the runny nose has persisted. He denies any facial swelling or tenderness. On examination the patient has some conjunctival injection to the right eye greater than the left. Yellow crusty substance to the medial aspect of the eye. Full extraocular range of motion. Pupils are equal and reactive. No periorbital swelling or erythema. No sinus tenderness. Bilateral nonpurulent rhinorrhea. No cervical lymphadenopathy. Given the above history and physical examination, I do believe this is most likely viral conjunctivitis. We will perform a Zapien lamp, consult ophthalmology, and expedite follow-up. I do believe sinusitis, preseptal or septal cellulitis to be extremely unlikely.
--- NOTE | 2018-10-28 15:22 | ER Document Report ---
ED Eye Complaint - General Chief Complaint: Eye Pain Stated Complaint: EYE PAIN Time Seen by Provider: 10/28/18 13:06 Primary Care Provider: ROBERT GOETZ DO [ACTIVE STAFF] - Follow up as needed LAKSHMI IVY MD [ACTIVE STAFF] - Follow up as needed Mode of Arrival: Ambulatory Information source: Patient Notes: 28-year-old male presented to ED for continued pain redness and drainage to the right eye. He also has drainage and redness from the left eye. He states he was diagnosed with pinkeye in the right eye on Sunday and given eyedrop antibiotics. He states the pain has continued and the right eye is now more painful. He states that the left eye started with redness and drainage within a day or 2 of his right eye. He states he has not been to an medical service technician or his primary care doctor. He states he has been using the eyedrops but he has been rubbing his eyes constantly due to the discomfort. TRAVEL OUTSIDE OF THE U[place] IN LAST 30 DAYS: No - HPI Onset: Last week Eye location: Bilateral Injury: No Occurred at: Work Quality of pain: Burning Severity: Moderate Pain Level: 4 Associated symptoms: Burning, Itching, Pain - Related Data Allergies/Adverse Reactions: No Known Allergies Allergy (Verified 10/28/18 12:04) Past Medical History - General Information source: Patient - Social History Smoking Status: Current Every Day Smoker Cigarette use (# per day): Yes Smoking Education Provided: Yes - 4 minutes Occupation: Works in the freezer Family History: None, Reviewed & Not Pertinent Patient has suicidal ideation: No Patient has homicidal ideation: No - Past Medical History Cardiac Medical History: Reports: None Pulmonary Medical History: Reports: None EENT Medical History: Reports: None Neurological Medical History: Reports: None Endocrine Medical History: Reports: None Renal/ Medical History: Reports: None Malignancy Medical History: Reports None GI Medical History: Reports: None Musculoskeletal Medical History: Reports Hx Musculoskeletal Deformity, Reports Hx Musculoskeletal Trauma Skin Medical History: Reports None Psychiatric Medical History: Reports: Hx Depression Traumatic Medical History: Reports: Hx Fractures - Leg Infectious Medical History: Reports: None Past Surgical History: Reports: Hx Orthopedic Surgery - back; feet, Other - Ingrown pain nail was removed - Immunizations Hx Diphtheria, Pertussis, Tetanus Vaccination: No Review of Systems - Review of Systems Constitutional: No symptoms reported EENT: Eye pain, Eye discharge, Blurred vision, Tearing Cardiovascular: No symptoms reported Respiratory: No symptoms reported Gastrointestinal: No symptoms reported Genitourinary: No symptoms reported Male Genitourinary: No symptoms reported Musculoskeletal: No symptoms reported Skin: No symptoms reported Hematologic/Lymphatic: No symptoms reported Neurological/Psychological: No symptoms reported -: Yes All other systems reviewed and negative Physical Exam - Vital signs Vitals: Temp Pulse Resp BP Pulse Ox 98.2 F 73 16 125/69 97 10/28/18 12:12 10/28/18 12:12 10/28/18 12:12 10/28/18 12:12 10/28/18 12:12 Interpretation: Normal - General General appearance: Appears well, Alert - HEENT Head: Normocephalic, Atraumatic Eyes: Normal Conjunctiva: Injected, Purulent discharge Cornea: Corneal abrasion, Flourescein stain uptake. No: Dendrite, Embedded foreign body, Superficial foreign body Extraocular movements intact: Yes Eyelashes: Matted Pupils: PERRL Visual acuity- Right eye: 20/30 Visual acuity- Left eye: 20/40 Visual acuity- Both eyes: 20/40 Corrective lenses worn: No Ears: Normal External canal: Normal Tympanic membrane: Normal Sinus: Normal Nasal: Purulent discharge, Swelling Mouth/Lips: Normal Mucous membranes: Normal Pharynx: Post nasal drainage Neck: Normal - Respiratory Respiratory status: No respiratory distress Chest status: Nontender Breath sounds: Normal Chest palpation: Normal - Cardiovascular Rhythm: Regular Heart sounds: Normal auscultation Murmur: No - Abdominal Inspection: Normal Distension: No distension Bowel sounds: Normal Tenderness: Nontender Organomegaly: No organomegaly - Back Back: Normal, Nontender - Extremities General upper extremity: Normal inspection, Nontender, Normal color, Normal ROM, Normal temperature General lower extremity: Normal inspection, Nontender, Normal color, Normal ROM, Normal temperature, Normal weight bearing. No: Rose's sign - Neurological Neuro grossly intact: Yes Cognition: Normal Orientation: AAOx4 Beto Coma Scale Eye Opening: Spontaneous Beto Coma Scale Verbal: Oriented Beto Coma Scale Motor: Obeys Commands Chili Coma Scale Total: 15 Speech: Normal Motor strength normal: LUE, RUE, LLE, RLE Sensory: Normal - Psychological Associated symptoms: Normal affect, Normal mood - Skin Skin Temperature: Warm Skin Moisture: Dry Skin Color: Normal Course - Re-evaluation Re-evalutation: 10/28/18 15:[address] King for the continued pain redness and drainage to the right eye with drainage and redness to the left eye. He agreed did not look like a viral conjunctivitis. Patient is to continue using the Polytrim. The patient also has a corneal abrasion to the right cornea. He was started on erythromycin ointment and ketorolac eyedrops for the pain. He was instructed to follow-up with ophthalmology tomorrow. I did give him to medical service technician for him to try to get into see 1 of them tomorrow. I did stress the importance of being seen properly. Patient verbalized understanding and agreement with treatment plan and patient was discharged home. - Vital Signs Vital signs: Temp Pulse Resp BP Pulse Ox 98.2 F 73 16 125/69 97 10/28/18 12:12 10/28/18 12:12 10/28/18 12:12 10/28/18 12:12 10/28/18 12:12 Discharge - Discharge Clinical Impression: Conjunctivitis Qualifiers: Conjunctivitis type: acute Acute conjunctivitis type: viral Laterality: bilateral Qualified Code(s): B30.9 - Viral conjunctivitis, unspecified Cornea abrasion Qualifiers: Encounter type: initial encounter Laterality: left Qualified Code(s): S05.02XA - Injury of conjunctiva and corneal abrasion without foreign body, left eye, initial encounter Condition: Stable Disposition: HOME, SELF-CARE Instructions: Family Physicians / Practices Additional Instructions: Corneal Abrasion You have a corneal abrasion, a scratch on the surface of the eye. The pain of a corneal abrasion feels like a sharp particle in the eye. Usually, antibiotics are placed in the eye to prevent infection. Occasionally, medication will be placed in the eye to dilate the pupil. This is done to relieve some of your discomfort and is only temporary. Pain medication may be required. Don't drive or operate machinery until you have the use of both your eyes. The abrasion usually is healed in one or two days. A follow-up examination to confirm healing is recommended. Call the doctor or return at once if you develop severe pain, decreasing v ision, eye swelling, or purulent drainage. CONJUNCTIVITIS: You have an infection in your eye, commonly known as "pink eye." Conjunctivitis causes redness, mild discomfort, itching, and mattering on the eyelids. It is very contagious, so you must be careful to wash your hands after touching your face so you don't pass the infection on to others. Conjunctivitis is caused by both viruses and bacteria. It usually responds quickly to treatment with antibiotic drops. These should be placed in the eye as prescribed (usually every three to four hours while you're awake). If you wear contact lenses, don't put them in your eyes until the infection is cleared and you are no longer using the drops (unless your doctor advises you otherwise). Should you develop increasing eye pain, severe swelling, decreased vision, or fail to improve as expected, please return for re-examination. EYEDROP USE: Eyedrops are most easily applied by pulling down on the cheek just below the lower eyelid. The lower lid will pop out to form a pouch into which you can drop the medicine. A small brief sting is not unusual, especially if the eye is reddened and irritated already. Use the drops exactly as recommended. You should see the doctor at once if there is a decrease in vision, swelling of the eye, or an increase in discomfort. Erythromycin You have been given an antibiotic of the erythromycin class. You have been given a tube in the ed to use until follow up with eye doctor. These antibiotics are used for many infections, especially in penicillin-allergic patients. They're particularly useful for infections of the respiratory system. The medication will be most effective if taken before or at least two hours after meals. However, many persons will have nausea or stomach cramping with erythromycin. If this occurs, try taking the medicine with food. If the side effects are still intolerable, contact your doctor. You should not take erythromycin with non-sedating antihistamines such as Seldane or Hismanal. Call the doctor at once if you develop rash, itching, shortness of breath, or lightheadedness. ANTIBIOTIC THERAPY: You have been given an antibiotic prescription. It's important that you take all the medication, unless instructed otherwise by your physician. Failure to complete the entire course can result in relapse of your condition. Common side effects of antibiotics include nausea, intestinal cramping, or diarrhea. Women may develop vaginal yeast infections, and babies can get yeast (thrush) in the mouth following the use of antibiotics. Contact your physician if you develop significant side effects from this medication. Allergy to this antibiotic can result in hives, wheezing, faintness, or itching. If symptoms of allergy occur, stop the medication and call the doctor. FOLLOW-UP CARE: If you have been referred to a physician for follow-up care, call the [facility] s[facility] office for an appointment as you were instructed or within the next two days. If you experience worsening or a significant change in your symptoms, notify the physician immediately or return to the Emergency Department at any time for re-evaluation. Forms: Smoking Cessation Education, Return to Work Referrals: LAKSHMI IVY MD [ACTIVE STAFF] - Follow up as needed ROBERT GOETZ DO [ACTIVE STAFF] - Follow up as needed
[2018-10-28] MEDS ORDERED: KETOROLAC TROMETHAMINE 0.45% 4 DROP/0.4 ML DROPERETTE OD SCH (15:30)
[2018-10-28] MEDS ORDERED: ERYTHROMYCIN 0.5% OPH OINTMENT 3.5 GM (ER DISP) OD SCH (15:30)
[2018-10-28 15:42] VITALS: BP 128/65
== END 2018-10-28 15:43 | disposition home or self-care (01) ==
LOC: ER 11:52
DX: B30.9 Viral conjunctivitis, unspecified (principal); S05.02XA Injury of conjunctiva and corneal abrasion without foreign body, left eye, initial encounter; R09.82 Postnasal drip; F17.210 Nicotine dependence, cigarettes, uncomplicated; Z71.6 Tobacco abuse counseling
CPT/HCPCS: 99282; 99406

== ENCOUNTER 2020-03-10 19:45 | Emergency (ER) | payer SELFPAY ==
[2020-03-10] MEDS ORDERED: IBUPROFEN 800 MG TABLET PO ONE (20:19)
[2020-03-10] MEDS ORDERED: CEPHALEXIN 500 MG CAPSULE PO ONE (20:19)
[2020-03-10] MEDS ORDERED: LIDOCAINE 2% VISCOUS SOLN 15 ML UDCUP PO ONE (20:19)
--- NOTE | 2020-03-10 20:25 | ER Document Report ---
ED Oral Problem - General Chief Complaint: Toothache Stated Complaint: TOOTHACHE Time Seen by Provider: 03/10/20 20:13 Primary Care Provider: ANA M SANTANA DDS [ACTIVE STAFF] - Follow up as needed Mode of Arrival: Ambulatory Information source: Patient Notes: 29-year-old male presented to ED for complaint of toothache for couple weeks. He states on Sunday he went to [place] and they gave him prescription for Keflex. He states he sent his girlfriend to the pharmacy to get Keflex and he forgot to get the patient had a car before his girlfriend went to [place]. He states he did not take any of the medicine. He states the pain is getting worse because he has not had any antibiotics. He states he is a former smoker rarely drinks and does not use any drugs. Constitutional: Negative for fever. HENT: Negative for sore throat. Complains dental pain to tooth #15 16 17 and 18 Eyes: Negative for visual changes. Cardiovascular: Negative for chest pain. Respiratory: Negative for shortness of breath. Gastrointestinal: Negative for abdominal pain, vomiting or diarrhea. Genitourinary: Negative for dysuria. Musculoskeletal: Negative for back pain. Skin: Negative for rash. Neurological: Negative for headaches, weakness or numbness. 10 point ROS negative except as marked above and in HPI. PHYSICAL EXAMINATION: GENERAL: Well-appearing, well-nourished and in no acute distress. HEAD: Atraumatic, normocephalic. EYES: Pupils equal round extraocular movements intact, conjunctiva are normal. ENT: Nares patent very bad cavities to tooth #15 #16 #17 and #18. They are all broken off very decayed with mild swelling to the area. NECK: Normal range of motion LUNGS: No respiratory distress Musculoskeletal: Normal range of motion NEUROLOGICAL: Normal speech, normal gait. PSYCH: Normal mood, normal affect. SKIN: Warm, Dry, normal turgor, no rashes or lesions noted. TRAVEL OUTSIDE OF THE [place] IN LAST 30 DAYS: No - HPI Patient complains to provider of: Toothache - Couple weeks Onset: Other Onset: Gradual Quality of pain: Sharp, Throbbing Severity: Moderate Pain Level: 4 Associated symptoms: Toothache Worsened by: Cold Relieved by: Nothing Similar symptoms previously: Yes Recently seen / treated by doctor/dentist: Yes - Related Data Allergies/Adverse Reactions: No Known Allergies Allergy (Verified 03/10/20 20:13) Past Medical History - General Information source: Patient - Social History Smoking Status: Former Smoker Frequency of alcohol use: None Drug Abuse: None Family History: None, Reviewed & Not Pertinent - Past Medical History Cardiac Medical History: Reports: None Pulmonary Medical History: Reports: None EENT Medical History: Reports: None Neurological Medical History: Reports: None Endocrine Medical History: Reports: None Renal/ Medical History: Reports: None Malignancy Medical History: Reports None GI Medical History: Reports: None Musculoskeletal Medical History: Reports Hx Musculoskeletal Deformity, Reports Hx Musculoskeletal Trauma Skin Medical History: Reports None Psychiatric Medical History: Reports: Hx Depression Traumatic Medical History: Reports: Hx Fractures - Leg Infectious Medical History: Reports: None Past Surgical History: Reports: Hx Orthopedic Surgery - back; feet, Other - Ingrown pain nail was removed - Immunizations Hx Diphtheria, Pertussis, Tetanus Vaccination: No Physical Exam - Vital signs Vitals: Temp Pulse Resp BP Pulse Ox 98.5 F 75 16 124/76 97 03/10/20 20:10 03/10/20 20:10 03/10/20 20:10 03/10/20 20:10 03/10/20 20:10 Course - Re-evaluation Re-evalutation: 03/10/20 22:03 Presentation is most consistent with likely an infected tooth. Airway is patent. Vitals within normal limits. Patient is able swallow without any difficulty. There is no significant facial swelling. No evidence of Carson angina, apical abscess, or airway obstruction. Patient will be started on antibiotics. I've instructed to follow-up with dentistry as earliest ability for definitive management. At this time will discharge with return precautions and follow-up recommendations. Verbal discharge instructions given a the bedside and opportunity for questions given. Medication warnings reviewed. Patient is in agreement with this plan and has verbalized understanding of return precautions and the need for primary care follow-up in the next 24-72 hours. - Vital Signs Vital signs: Temp Pulse Resp BP Pulse Ox 98.5 F 75 16 124/76 97 03/10/20 20:10 03/10/20 20:10 03/10/20 20:10 03/10/20 20:10 03/10/20 20:10 Discharge - Discharge Clinical Impression: Pain due to dental caries Condition: Stable Disposition: HOME, SELF-CARE Additional Instructions: TOOTHACHE: Your pain is due to dental decay. The tooth must be repaired in order for you to feel better. You will, therefore, be referred to a dentist. We do not have dentists on the staff at [facility]. Severe swelling or drainage around a tooth usually means a dental abscess. This also requires evaluation and treatment by the dentist, but antibiotics may be prescribed while awaiting dental treatment. You should be rechecked immediately if you develop major swelling of the face, increasing pain, a lump in the jaw or gums, headache, difficulty swallowing, or fever. Cephalexin The antibiotic you've been prescribed is a member of the cephalosporin class. This type of antibiotic covers a wide variety of infections, including those of the skin, lungs, and urinary tract. It's useful for staph infections. This antibiotic is slightly similar to the penicillin family. In rare cases, a person who is allergic to penicillin will also be allergic to this medication. If you have had a severe allergic reaction to penicillin, and have not taken this antibiotic since that time, notify your doctor. Antibiotics which cover many germs ("broad spectrum" antibiotics) are more likely to cause diarrhea or "yeast" infections. Women prone to vaginal yeast problems may suffer an attack after taking this antibiotic. In infants, oral thrush (white spots "stuck" on the cheek) or yeast diaper rash may result. See your doctor if these problems occur. Call at once if you develop itching, hives, shortness of breath, or lightheadedness. Ibuprofen Ibuprofen is an excellent, safe drug for pain control. In addition, it has potent antiinflammatory effects which are beneficial, especially in the treatment of injuries, arthritis, or tendonitis. It's best to take ibuprofen with food. Persons with ulcer disease or allergy to aspirin should notify their physician of this before taking ibuprofen. Take the medication exactly as prescribed. Don't take additional doses unless instructed to do so by your doctor. If you develop wheezing, shortness of breath, hives, faintness, stomach pain, vomiting, or dark black stools, return for re-evaluation at once. You were treated with viscous lidocaine. This is in a syringe. You can but this did the tooth every 4 hours as needed for pain. Please do not use more often than every 4 hours or will erode the skin on your gums. This treatment is only going to be a temporary treatment until you get into the dentist. This is not a permanent treatment these teeth need to be removed. FOLLOW-UP CARE: You have been referred for follow-up care to the dentists listed below. Call the dentists office for an appointment as you were instructed or within the next two days. If you experience worsening or a significant change in your symptoms, notify the physician immediately or return to the Emergency Department at any time for re-evaluation. [facility] [address] [place] [address] [facility] [place] [address] [facility] [address] [facility]) [facility] [address] [facility] [email or web address] [address] [place] [address] Sunday- 8:00am to 5:00 pm Will see patients from other [facility]. Charges based on income and family size and accepts Medicare, Medicaid, and Insurances Will pull molars [facility] [id number] Hours of Operation 8:00 am - 4:30 pm weekdays The following dental offices accept Medicaid: [facility] [place] [facility] Dr. Gomez Dr. Jensen Dr. Mckee Dr. Andrews Usman Quinn Lutsavage, and Ja oral surgery Dr. Lomeli ([place]) Dr. Inman ([place]) [facility] Drs. Gong and Joe ([place]) Dr. Serrano ([place]) [facility] Dr. Le ([place]) Drs. Townsend and ([place]) Medicaid Care Line Prescriptions: Cephalexin Monohydrate [Keflex 500 mg Capsule] 500 mg PO Q6H 5 Days #20 capsule Referrals: ANA M SANTANA DDS [ACTIVE STAFF] - Follow up as needed
[2020-03-11 00:21] VITALS: BP 128/74
== END 2020-03-10 20:29 | disposition home or self-care (01) ==
LOC: ER 19:45
DX: K02.9 Dental caries, unspecified (principal)
CPT/HCPCS: 99283; J3490

== ENCOUNTER 2020-03-31 14:56 | Emergency (ER) | payer SELFPAY ==
[2020-03-31 15:03] VITALS: BP 139/80
--- NOTE | 2020-03-31 15:28 | ER Document Report ---
HPI - HPI Patient complains to provider of: toothache Time Seen by Provider: 03/31/20 15:13 Pain Level: 3 Notes: Patient is a 29-year-old male with complaint of a toothache. This started 4 weeks ago with associated swelling. Patient was prescribed cephalexin by his dentist without improvement. He was then given a second antibiotic and his symptoms resolved. He cannot remember the name of the second antibiotic. 3 days ago patient was brushing his teeth and noticed chunks of food fall out of his mouth. Since then the toothache has returned and feels the same as the pain from 4 weeks ago. Denies facial swelling, fever, chills, body aches. - CONSTITUTIONAL Constitutional: DENIES: Fever, Chills - EENT EENT: DENIES: Sore Throat, Ear Pain, Congestion Notes: Dental caries - NEURO Neurology: DENIES: Headache - CARDIOVASCULAR Cardiovascular: DENIES: Chest pain - RESPIRATORY Respiratory: DENIES: Trouble Breathing, Coughing - GASTROINTESTINAL Gastrointestinal: DENIES: Abdominal Pain, Nausea, Patient vomiting, Diarrhea - MUSCULOSKELETAL Musculoskeletal: DENIES: Extremity pain, Back Pain, Neck Pain, Swelling - DERM Skin Color: Normal Skin Problems: None Past Medical History - General Information source: Patient - Social History Smoking Status: Former Smoker Frequency of alcohol use: Rare Family History: None, Reviewed & Not Pertinent Patient has homicidal ideation: No Renal/ Medical History: Denies: Hx Peritoneal Dialysis Musculoskeletal Medical History: Reports Hx Musculoskeletal Deformity, Reports Hx Musculoskeletal Trauma Psychiatric Medical History: Reports: Hx Depression Traumatic Medical History: Reports: Hx Fractures - Leg Past Surgical History: Reports: Hx Orthopedic Surgery - back; feet, Other - Ingrown pain nail was removed - Immunizations Hx Diphtheria, Pertussis, Tetanus Vaccination: No Vertical Provider Document - CONSTITUTIONAL Agree With Documented VS: Yes General Appearance: WD/WN - INFECTION CONTROL TRAVEL OUTSIDE OF THE [place] IN LAST 30 DAYS: No - HEENT HEENT: Atraumatic, Normocephalic, PERRLA Notes: Severe dentition throughout. Multiple teeth eroding into the gumline. There is no irma dental abscess. There is no Carson's angina. There is no facial swelling. There is no drooling or muffled voice. Airway is grossly patent. - NECK Neck: Normal Inspection, Supple - RESPIRATORY Respiratory: Breath Sounds Normal, No Respiratory Distress. negative: Rales, Rhonchi, Wheezing - CARDIOVASCULAR Cardiovascular: Regular Rate, Regular Rhythm, No Murmur - GI/ABDOMEN Gastrointestinal: Abdomen Soft, Abdomen Non-Tender, No Organomegaly - BACK Back: Normal Inspection - MUSCULOSKELETAL/EXTREMETIES Musculoskeletal/Extremeties: MAEW, FROM, Non-Tender - NEURO Level of Consciousness: Awake, Alert, Appropriate - DERM Integumentary: Warm, Dry, No Rash Course - Re-evaluation Re-evalutation: Impression: Toothache. This is a reoccurring problem for the patient. He really does need to see a dentist for further and definitive care. However, we will start him on antibiotic as well as a mouthwash. Patient agrees with the plan. - Vital Signs Vital signs: Temp Pulse Resp BP Pulse Ox 98.1 F 80 16 139/80 H 100 03/31/20 15:02 03/31/20 15:02 03/31/20 15:02 03/31/20 15:02 03/31/20 15:02 Discharge - Discharge Clinical Impression: Dental caries, Toothache Condition: Stable Disposition: HOME, SELF-CARE Instructions: Clindamycin ([facility]), Dentist, Toothache ([facility]) Additional Instructions: FOllow up with your dentist as scheduled on April 20. Take all antibiotics as prescribed. Return if worsening symptoms. Prescriptions: Clindamycin HCl 300 mg PO TID #30 capsule Etodolac [Lodine] 200 mg PO BID #12 tablet Chlorhexidine Gluconate [Peridex] 15 ml MM QID #420 ml
== END 2020-03-31 15:34 | disposition home or self-care (01) ==
LOC: ER 14:56
DX: K02.9 Dental caries, unspecified (principal); K08.89 Other specified disorders of teeth and supporting structures; R22.0 Localized swelling, mass and lump, head; Z87.891 Personal history of nicotine dependence
CPT/HCPCS: 99283